=== PATIENT | female | born 1945 | race Caucasian/White ===

== ENCOUNTER → 2016-07-25 | Outpatient (CLI) | payer OTHER, MEDICARE, MEDICAID ==
--- NOTE | 2016-07-25 17:32 | DX ---
Bilateral knees, 3 views each side. July 25, 2016. HISTORY: Evaluate arthritis. Knee pain. FINDINGS: Right knee: Moderate medial compartment joint space narrowing. There is also moderate narrowing of th e medial aspect of the patellofemoral joint. The lateral compartment is relatively preserved. No frac ture or joint effusion. Left knee: Again demonstrated is moderate medial compartment joint space narrowing. There is chondroc alcinosis within the lateral compartment. No fracture or joint effusion. Moderate patellofemoral join t space narrowing is present medially. Enthesopathy noted at the attachment of the quadriceps tendon to the upper pole of the patella. IMPRESSION: 1. Bilateral knee osteoarthritis, preferential involvement of medial and patellofemoral compartments. Chondrocalcinosis.
== END ==
LOC: BMCIMAGING 16:12
PROVIDERS: ATTEND Internal Medicine Rheumatology
DX: M17.0 Bilateral primary osteoarthritis of knee (principal)

== ENCOUNTER → 2017-06-14 | Outpatient (CLI) | payer OTHER, MEDICARE | LOC: BMCIMAGING 11:44 | PROVIDERS: ATTEND Internal Medicine Rheumatology | DX: M16.0 Bilateral primary osteoarthritis of hip (principal); M11.252 Other chondrocalcinosis, left hip; M11.251 Other chondrocalcinosis, right hip; Q65.89 Other specified congenital deformities of hip ==